=== PATIENT | female | born 1955 ===

== ENCOUNTER 2025-06-06 07:00 | Day surgery (SDC) | payer OTHER ==
[2025-05-30 12:53] VITALS: BP 150/85; BP 155/85
[2025-05-30 13:18] LABS: BASO % 0.8 % (0.1-1.2); EOS # 0.07 (0.04-0.54); EOS % 1.1 % (0.7-7.0); LYMPH # 2.46 (1.18-3.74); LYMPH % 37.2 % (19.3-53.1); MEAN PLATELET VOLUME 10.50 fl (9.4-12.4); MONO # 0.33 (0.24-0.82); MONO % 5.0 % (4.7-12.5); NEUT # 3.68 (1.56-6.13); NEUT % 55.6 % (34.0-71.1); RED CELL DISTRIBUTION WIDTH 14.2 % (11.6-14.4)
[2025-05-30 13:48] LABS: INR 1.02
[~2025-06-06] VITALS: Ht 160 cm; Wt 74.8 kg
[~2025-06-06 07:00] MED LIST: ASA81 MG PO; CARDURA XL4 MG PO; LOSARTAN-HCTZ1 EAC1 PO; SYNJARDY 12.5-1 EACH
[2025-06-06] MEDS ORDERED: CEFAZOLIN SODIUM 1,000 MG VIAL ONE (07:25)
[2025-06-06] MEDS ORDERED: CHLORHEXIDINE GLUCONATE 120 ML BOTTLE TOP ONE (08:22)
[2025-06-06] MEDS ORDERED: GENTAMICIN SULFATE 40 MG/ML VIAL ONE (08:22)
[2025-06-06] MEDS ORDERED: EPINEPHRINE HCL/PF 1 MG/ML AMPUL ONE (08:22)
[2025-06-06] MEDS ORDERED: LIDOCAINE HCL 1%/EPINEPHRINE 20ML VIAL IJ ONE (08:22)
[2025-06-06] MEDS ORDERED: MACROBID 100 M100 MG PO (11:21)
[2025-06-06] MEDS ORDERED: TRAM1TAB98 PO (11:22)
== END 2025-06-06 12:30 | disposition home or self-care (01) ==
LOC: CIR.AMB 07:00
PROVIDERS: ATTEND Obstetrics & Gynecology Gynecology
DX: N81.11 Cystocele, midline (principal)